=== PATIENT | female | born 1975 | race Caucasian/White ===

== ENCOUNTER 2018-09-20 23:07 | Emergency (ER) | payer OTHER ==
[~2018-09-20] VITALS: Ht 157.5 cm; Wt 95.3 kg
[~2018-09-20 23:07] MED LIST: BCP; CLONIDINE; DULO30CA PO; FENTANYL; IBP800T PO; LRT10T PO; MSL400TEC PO; MTF500T PO; TRM50T PO; ZLP10T PO; [UNRECOGNIZED DRUG - OTHER]; [UNRECOGNIZED DRUG - OTHER]
--- OUTSIDE RECORDS SUMMARY | 2018-09-20 23:14 | XMS REPORT | Continuity of Care Document ---
Author Organization Unknown Address Unknown Allergies Active Description Code Type Severity Reaction Onset Reported/Identified Relationship to Patient Clinical Status Yes amoxicillin trihydrate [id number] Drug Allergy Unknown N/A 05/17/2012 Yes potassium clavulanate [id number] Drug Allergy Unknown N/A 05/17/2012 Medications There is no data. Problems Date Dx Coded Attending Type Code Diagnosis Diagnosed By 07/24/2013 SERA WATTS DO Ot 368.8 VISUAL DISTURBANCES NEC 07/24/2013 SERA WATTS DO Ot 780.52 INSOMNIA, UNSPECIFIED 07/24/2013 SERA WATTS DO Ot 780.79 OTH MALAISE FATIGUE Procedures There is no data. Results There is no data. Encounters ACCT No. Visit Date/Time Discharge Status Pt. Type Provider Facility Loc./Unit Complaint [id number] 07/24/2013 18:41:00 07/24/2013 21:30:00 DIS Emergency SERA WATTS DO [facility] ER R SIDE VISION BLURRED [id number] 09/20/2018 23:10:00 ACT Emergency JEAN CARLOS STERN MD [facility] ER FS ABDOMINAL PAIN/NAUSEA
[2018-09-20 23:47] LABS: BILIRUBIN,URINE NEGATIVE (NEGATIVE); CLARITY,URINE SLT CLOUDY; COLOR,URINE YELLOW; GLUCOSE, URINE (UA) NEGATIVE (NEGATIVE); KETONES,URINE NEGATIVE (NEGATIVE); LEUKOCYTE ESTERASE ,URINE NEGATIVE (NEGATIVE); NITRITE,URINE NEGATIVE (NEGATIVE); PROTEIN,URINE NEGATIVE (NEGATIVE); UROBILINOGEN,URINE 0.2 MG/DL (NORMAL); WBC,URINE 0-2 /HPF
[2018-09-20 23:48] LABS: BACTERIA,URINE RACE /HPF
[2018-09-20] MEDS ORDERED: DICYCLOMINE 10 MG/ML (BENTYL) 2 ML AMP IM STA (23:56)
[2018-09-21] MEDS ORDERED: ONDANSETRON 4 MG/2 ML (SDV) Z0FRAN IVP ONE
[2018-09-21] MEDS ORDERED: KETOROLAC 30 MG/ML VIAL IVP ONE
--- NOTE | 2018-09-21 00:20 | ED Abdominal Pain ---
General Chief Complaint: Abdominal/GI Problems Stated Complaint: ABDOMINAL PAIN/NAUSEA Nursing Triage Note: pt states diffuse abd pain started 5 hrs ago, pt with bowel problems, states bowel movements are not regular, states urination is not regular either. 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 She states it is a cramping sharp pain and is associated with nausea. When the pain comes on it is severe in nature and lasts for several minutes. She has been under extra stress recently with visiting her mother in the hospital. Tonight she was going to try and go back to work but she had this pain come on with n/v. She does have a hx of Sphincter of Oddi dysfunction, Recurrent Pancreatitis, Chronic Constipation, multiple abdominal surgeries including hysterectomy, appendectomy and cholecystectomy, but states that the pain tonight feels different than any of her pains she has had previously. She had tried taking an ambien to sleep and see if she could sleep through the pain but it kept getting worse so she came to the ED tonight. She had taken a Zofran prior to going to bed as well. Timing/Duration: 4-6 Hours Severity/Quality: Severe Location: RUQ, Epigastric Radiation: RUQ, Epigastric Activities at Onset: Rest Modifying Factors: Worsens With Palpation Associated Symptoms: No Chest Pain, No Diaphoresis, No Fever/Chills, No Fatigue , No Headache, No Heartburn; Nausea/Vomiting; No Rash, No Shortness of Air, No Swelling/Mass in Abdomen, No Syncope, No Weakness nothing makes the pain any better but the pain is worse with palpation. Allergies and Home Medications Allergies Coded Allergies: amoxicillin trihydrate (Verified Allergy, 05/17/12) potassium clavulanate (Verified Allergy, 05/17/12) Home Medications Loratadine 10 Mg Tab, 10 MG PO DAILY, (Reported) Mesalamine 400 Mg Tab, 1 TAB PO DAILY, (Reported) Metformin Hcl 500 Mg Tablet, 1 EACH PO BID WITH MEALS, (Reported) Zolpidem Tartrate 10 Mg Tab, 10 MG PO HS, (Reported) Patient Home Medication List Home Medication List Reviewed: Yes Review of Systems Review of Systems Constitutional: No chills, No fever EENTM: No Symptoms Reported Respiratory: No Symptoms Reported Cardiovascular: No Symptoms Reported Gastrointestinal: See HPI, Constipated (chronic with last good BM about 3-4 days ago and only small amounts of stool since then) Genitourinary: Denies Burning, Denies Discharge, Denies Drainage, Denies Frequency, Denies Flank Pain, Denies Hematuria Musculoskeletal: no symptoms reported Skin: no symptoms reported; No rash Psychiatric/Neurological: Anxiety Past [id number]-Ziinsf-Sqdebu Hx Past Med/Social Hx: Reviewed Nursing Past Med/Soc Hx Patient Social History Alcohol Use: Denies Use Recreational Drug Use: No Smoking Status: Never a Smoker 2nd Hand Smoke Exposure: No Recent Foreign Travel: No Contact w/Someone Who Travel: No Recent Infectious Disease Expo: No Recent Hopitalizations: No Physical Abuse: No Sexual Abuse: No Mistreated: No Fear: No Immunizations Up To Date Date of Influenza Vaccine: Apr 14, 2013 Seasonal Allergies Seasonal Allergies: No Past Medical History Surgeries: Yes Abdominal, Adenoidectomy, Appendectomy, Gallbladder, Hysterectomy, Tonsillectomy Respiratory: No Cardiac: Yes Hypertension Neurological: No Reproductive Disorders: No Sexually Transmitted Disease: No Genitourinary: No Gastrointestinal: Yes Colitis, Irritable Bowel Musculoskeletal: No Endocrine: No HEENT: No Cancer: No Psychosocial: Yes Anxiety Integumentary: Yes Eczema Blood Disorders: No Physical Exam Vital Signs Vital Signs - First Documented 09/20/18 23:41 Temp 98.8 Pulse 102 Resp 15 B/P (MAP) 130/90 (103) Pulse Ox 97 O2 Delivery Room Air Capillary Refill : Less Than 3 Seconds Height/Weight/BMI Height: 5'2.00" Weight: 210lbs. oz. 95.934709ax; BMI Method:Stated General Appearance: WD/WN, mild distress HEENT: PERRL/EOMI, pharynx normal Neck: non-tender, supple Respiratory: chest non-tender, lungs clear, normal breath sounds, no respiratory distress, no accessory muscle use Cardiovascular: normal peripheral pulses, regular rate, rhythm Gastrointestinal: soft, no pulsatile mass, abnormal bowel sounds (hypoactive bowel sounds), guarding; No rebound; tenderness (epigastric and RUQ) Rectal: deferred Extremities: normal range of motion, non-tender Neurologic/Psychiatric: alert, oriented x 3 Skin: normal color, warm/dry Images 1 - tender to palpation in epigastric and RUQ. No rebound tenderness or pulsatile mass. Progress/Results/Core Measures Results/Orders Lab Results Laboratory Tests Test 09/20/18 00:30 09/20/18 23:34 Range/Units White Blood Count 9.4 4.3-11.0 10^3/uL Red Blood Count 4.97 4.35-5.85 10^6/uL Hemoglobin 15.4 11.5-16.0 G/DL Hematocrit 45 35-52 % Mean Corpuscular Volume 91 80-99 FL Mean Corpuscular Hemoglobin 31 25-34 PG Mean Corpuscular Hemoglobin Concent 34 32-36 G/DL Red Cell Distribution Width 12.8 10.0-14.5 % Platelet Count 314 130-400 10^3/uL Mean Platelet Volume 9.3 7.4-10.4 FL Neutrophils (%) (Auto) 60 42-75 % Lymphocytes (%) (Auto) 28 12-44 % Monocytes (%) (Auto) 7 0-12 % Eosinophils (%) (Auto) 4 0-10 % Basophils (%) (Auto) 0 0-10 % Neutrophils # (Auto) 5.6 1.8-7.8 X 10^3 Lymphocytes # (Auto) 2.7 1.0-4.0 X 10^3 Monocytes # (Auto) 0.7 0.0-1.0 X 10^3 Eosinophils # (Auto) 0.4 H 0.0-0.3 10^3/uL Basophils # (Auto) 0.0 0.0-0.1 10^3/uL Sodium Level 139 135-145 MMOL/L Potassium Level 4.3 3.6-5.0 MMOL/L Chloride Level 98 98-107 MMOL/L Carbon Dioxide Level 26 21-32 MMOL/L Anion Gap 15 H 5-14 MMOL/L Blood Urea Nitrogen 11 7-18 MG/DL Creatinine 0.59 L 0.60-1.30 MG/DL Estimat Glomerular Filtration Rate > 60 BUN/Creatinine Ratio 19 Glucose Level 117 H 70-105 MG/DL Calcium Level 8.6 8.5-10.1 MG/DL Corrected Calcium 8.6 8.5-10.1 MG/DL Total Bilirubin 0.3 0.1-1.0 MG/DL Aspartate Amino Transf (AST/SGOT) 14 5-34 U/L Alanine Aminotransferase (ALT/SGPT) 10 0-55 U/L Alkaline Phosphatase 77 40-136 U/L Total Protein 7.4 6.4-8.2 GM/DL Albumin 4.0 3.2-4.5 GM/DL Lipase 16 8-78 U/L Urine Color YELLOW Urine Clarity SLT CLOUDY Urine pH 6.0 5-9 Urine Specific [place] 1.025 H 1.016-1.022 Urine Protein NEGATIVE NEGATIVE Urine Glucose (UA) NEGATIVE NEGATIVE Urine Ketones NEGATIVE NEGATIVE Urine Nitrite NEGATIVE NEGATIVE Urine Bilirubin NEGATIVE NEGATIVE Urine Urobilinogen 0.2 NORMAL MG/DL Urine Leukocyte Esterase NEGATIVE NEGATIVE Urine RBC (Auto) 2+ H NEGATIVE Urine RBC 2-5 H /HPF Urine WBC 0-2 /HPF Urine Squamous Epithelial Cells 2-5 /HPF Urine Crystals NONE /LPF Urine Bacteria RACE /HPF Urine Casts NONE /LPF Urine Mucus MODERATE H /LPF Urine Culture Indicated NO My Orders Orders - JEAN CARLOS STERN MD Ua Culture If Indicated (09/20/18 23:34) Comprehensive Metabolic Panel (09/20/18 23:56) Lipase (09/20/18 23:56) Ed Iv/Invasive Line Start (09/20/18 23:56) Cbc With Automated Diff (09/20/18 23:56) Ondansetron Injection (Zofran Injectio (09/21/18 00:00) Dicyclomine Injection (Bentyl Injection) (09/20/18 23:56) Ct Abd/Pelvis Wo(Kidney Stone) (09/20/18 23:56) Ketorolac Injection (Toradol Injection) (09/21/18 00:00) Rx-Dicyclomine Capsule (Rx-Bentyl Capsul (09/21/18 01:30) Medications Given in ED Current Medications Medications Dose Ordered Sig/Shakeel Route Start Time Stop Time Status Last Admin Dose Admin Ketorolac Tromethamine 30 mg ONCE ONCE IVP 09/21/18 00:00 09/21/18 00:05 DC 09/21/18 00:28 30 MG Ondansetron HCl 4 mg ONCE ONCE IVP 09/21/18 00:00 09/21/18 00:05 DC 09/21/18 00:28 4 MG Vital Signs/I&O 09/20/18 23:41 Temp 98.8 Pulse 102 Resp 15 B/P (MAP) 130/90 (103) Pulse Ox 97 O2 Delivery Room Air Blood Pressure Mean: 103 Progress Progress Note #1: Time: 00:01 Progress Note obtain labs and check CT scan of abdomen and pelvis. Since she reports a family history of kidney stones in her father and does have some blood in her urine will check a renal stone protocol CT. This would also be able to check for bowel obstruction since she has hypoactive BS and multiple surgeries in the past which puts her at increased risk of small bowel obstruction. Try Zofran for nausea, Toradol for pain and Bentyl for spasm and cramping pain. Progress Note #2: Time: 01:10 Progress Note Labs came back showing normal CBC without acute abnormality. Chemistry shows normal Lipase and no acute significant abnormality on LFTs or renal function. Her electrolytes all look ok as well. CT scan read by [facility] as no obstruction or blockage and appearing more consistent with enteritis. Will review results with pt and see how she has responded to treatment so far. Progress Note #3: Time: 01:25 Progress Note Pt reports symptoms improved with treatment. Reviewed results and counseled on treatment for enteritis. Will have her continue to push fluids at home and use Zofran. Add in Bentyl and see if that continues to help. counseled on follow up and return precautions. Diagnostic Imaging Diagonstic Imaging: CT Plain Films/CT/US/NM/MRI: abdomen, pelvis Comments Impression: 1. Findings most likely represent enteritis involving the small bowel. 2. No bowel obstruction or free air. 3. No other acute findings. per Dr. Saturnino Mendoza MD read at [id number] and faxed at [phone]. Reviewed: Reviewed Night [facility] Study Departure Impression Primary Impression: Acute gastroenteritis Additional Impression: Epigastric abdominal pain Disposition: HOME, SELF-CARE Condition: Stable Departure-Patient Inst. Decision time for Depature: 01:35 Referrals: RUTHANN OBANDO DO (PCP/Family) Primary Care Physician Patient Instructions: Viral Gastroenteritis, Adult (DC) Add. Discharge Instructions: Continue on your Zofran at home for nausea and keep trying to push fluids and rest. Use the Dicyclomine (Bentyl) for abdominal pain/cramping. The tests tonight were showing signs of Gastroenteritis or a stomach virus that is causing stomach and small intestine irritation. Check back with clinic if not improving by Saturday or Saturday or return if worsening Consider taking a Probiotic to help your gut replace the good bacteria and balance itself back out. Activia or a Yogurt with active cultures would also help to replace some of the good bacteria. All discharge instructions reviewed with patient and/or family. Voiced understanding. Scripts Dicyclomine HCl (Dicyclomine HCl) 20 Mg Tablet 20 MG PO Q6H PRN for ABDOMINAL PAIN for 7 Days, #30 TAB 0 Refills Prov: JEAN CARLOS STERN MD 09/21/18 Work/School Note: Work Release Form Date Seen in the Emergency Department: Sep 20, 2018 Return to Work: Sep 24, 2018 Restrictions: No Restrictions JEAN CARLOS STERN MD Sep 21, 2018 00:20
[2018-09-21 00:35] LABS: HEMATOCRIT 45 % (35-52); HEMOGLOBIN 15.4 G/DL (11.5-16.0); MEAN CORPUSCULAR HEMOGLOBIN 31 PG (25-34); MEAN CORPUSCULAR VOLUME 91 FL (80-99); WHITE BLOOD COUNT 9.4 10^3/uL (4.3-11.0)
[2018-09-21 00:36] LABS: BASOPHILS % (AUTO) 0 % (0-10); EOSINOPHILS # (AUTO) 0.4 10^3/uL (0.0-0.3); EOSINOPHILS % (AUTO) 4 % (0-10); LYMPHOCYTES # (AUTO) 2.7 X 10^3 (1.0-4.0); LYMPHOCYTES % (AUTO) 28 % (12-44); MEAN CORPUSCULAR HGB CONC 34 G/DL (32-36); MEAN PLATELET VOLUME 9.3 FL (7.4-10.4); MONOCYTES # (AUTO) 0.7 X 10^3 (0.0-1.0); MONOCYTES % (AUTO) 7 % (0-12); NEUTROPHILS # (AUTO) 5.6 X 10^3 (1.8-7.8); NEUTROPHILS % (AUTO) 60 % (42-75); PLATELET COUNT 314 10^3/uL (130-400); RED CELL DISTRIBUTION WIDTH 12.8 % (10.0-14.5)
[2018-09-21 00:55] LABS: POTASSIUM 4.3 MMOL/L (3.6-5.0); SODIUM 139 MMOL/L (135-145)
[2018-09-21 00:56] LABS: ALANINE AMINOTRANSFERASE 10 U/L (0-55); ALKALINE PHOSPHATASE 77 U/L (40-136); BILIRUBIN,TOTAL 0.3 MG/DL (0.1-1.0); BUN/CREATININE RATIO 19; CALCIUM 8.6 MG/DL (8.5-10.1); CARBON DIOXIDE 26 MMOL/L (21-32); CHLORIDE 98 MMOL/L (98-107); CREATININE SERUM 0.59 MG/DL (0.60-1.30); GFR ESTIMATED > 60; GLUCOSE 117 MG/DL (70-105); LIPASE 16 U/L (8-78); TOTAL PROTEIN 7.4 GM/DL (6.4-8.2)
[2018-09-21] MEDS ORDERED: RX-DICYCLOMINE 10 MG (BENTYL) CAP PPK#4 PO STA (01:30)
[2018-09-21] MEDS ORDERED: DICY20TA10 PO (01:36)
[2018-09-21 01:48] VITALS: BP 121/90
--- NOTE | 2018-09-21 06:08 | Diagnostic Imaging Report ---
Clinical indication: Patient with diffuse abdominal pain. Exam: CT exam of the abdomen and pelvis is performed without IV or oral contrast using stone protocol. Coronal and sagittal reformatted images are created. Comparisons: None. Findings: Visualized lung bases: Unremarkable. Liver: There is small amount of pneumobilia seen possibly from cholecystectomy changes. Otherwise liver is unremarkable. Gallbladder: Gallbladder surgically resected. Pancreas: Unremarkable as visualized. Spleen: Unremarkable as visualized. Adrenal glands: Unremarkable. Kidneys/ ureters: Unremarkable as visualized. Aorta: Unremarkable as visualized. Intraabdominal/ retroperitoneal contents: There is no intra-abdominal free air. Fluid within the mesentery, lower abdomen and pelvis region. Intestines: There are mildly distended fluid-filled loops of small bowel overlying the mid lower abdomen with few air-fluid levels seen. There is mild fat stranding and mild fluid in the adjacent mesentery. There is no measurable mass seen. Remainder of the intestines show no other significant abnormality. There is a diverticula involving the splenic flexure of the colon. There is no CT evidence of diverticulitis. Appendix: Surgically absent. Bladder: Unremarkable as visualized. Pelvic organs: The uterus is surgically resected. The adnexal regions are not well delineated and may also be surgically resected. Extra abdominal/ pelvis regions: Unremarkable. Abdominal wall: Unremarkable. Bones: Unremarkable. Impression: 1: There is multiple fluid distended loops of small bowel overlying the mid and lower abdomen with air-fluid levels, and bowel wall thickening. There is also adjacent fat stranding and mesenteric fluid seen. These findings may be related to enteritis. There is no intra-abdominal free air. 2: The remainder of this exam shows no other significant abnormality. I agree with [facility] report. Dictated by: Dictated on workstation # [id number]
== END 2018-09-21 01:47 | disposition home or self-care (01) ==
LOC: EDUNIT# 23:07 → ER FS 23:10
DX: K52.9 Noninfective gastroenteritis and colitis, unspecified (principal); I10 Essential (primary) hypertension; K58.9 Irritable bowel syndrome, unspecified; F41.9 Anxiety disorder, unspecified; Z87.19 Personal history of other diseases of the digestive system; Z90.710 Acquired absence of both cervix and uterus; Z90.49 Acquired absence of other specified parts of digestive tract; Z88.0 Allergy status to penicillin; Z88.8 Allergy status to other drugs, medicaments and biological substances; Z79.84 Long term (current) use of oral hypoglycemic drugs; Z90.89 Acquired absence of other organs
CPT/HCPCS: 36415; 74176; 80053; 81000; 83690; 85025; 96374; 96375

== ENCOUNTER 2022-11-18 23:19 | Emergency (ER) | payer OTHER ==
[~2022-11-18] VITALS: Ht 157.5 cm; Wt 84.6 kg
[~2022-11-18 23:19] MED LIST changes: +DICY20TA PO
[2022-11-18] MEDS ORDERED: NS IV 1000 ML 1,000 ML IV STA (23:34)
[2022-11-18] MEDS ORDERED: ONDANSETRON 4 MG/2 ML (SDV) Z0FRAN IVP STA (23:34)
[2022-11-18] MEDS ORDERED: PANTOPRAZOLE 40 MG (PROTONIX) VIAL IV STA (23:34)
[2022-11-18] MEDS ORDERED: KETOROLAC 15 MG/ML VIAL IVP STA (23:34)
--- NOTE | 2022-11-18 23:38 | ED GI ---
General Chief Complaint: Abdominal/GI Problems Stated Complaint: ABD PAIN|CRAMPING Source of Information: Patient History of Present Illness Date Seen by Provider: Nov 18, 2022 Time Seen by Provider: 23:26 Initial Comments 47-year-old female presenting with complaints of a week of off-and-on abdominal pain with nausea but no vomiting. 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 She sees GI specialist Dr. Esquivel intermittently for her sphincter of Oddi dysfunction and pancreatitis but has not seen him recently. She has had stool that varied from diarrhea to constipation. She had woken up with pain earlier today and had gone to work tonight however she felt like the pain was so bad that she was not going to be able to complete work. She left work to come here to the emergency department. She rates her pain at a 7 out of 10 and it is worse in the upper aspect of her abdomen. She feels like it is going into her back. She had felt like she was may be running a fever earlier but did not check her temperature. She also thought that that might be related to seasonal allergies since she started taking an allergy pill. Timing/Duration: 1 Week Severity/Quality: Severe, Cramping, Sharp Location: Generalized Abdomen (But worse in the upper abdomen and epigastric area) Radiation: Back Activities at Onset: None Modifying Factors: Worsens With Eating Associated Symptoms: No Chest Pain, No Diaphoresis, No Fever/Chills, No Headache; Heartburn, Nausea/Vomiting (Nausea but no vomiting); No Shortness of Air, No Swelling/Mass in Abdomen, No Syncope, No Weakness Allergies and Home Medications Allergies Coded Allergies: amoxicillin trihydrate (Verified Allergy, 05/17/12) potassium clavulanate (Verified Allergy, 05/17/12) Patient Home Medication List Home Medication List Reviewed: Yes Dicyclomine HCl (Dicyclomine HCl) 20 Mg Tablet, 20 MG PO Q6H PRN for ABDOMINAL PAIN Prescribed by: JEAN CARLOS STERN on 09/21/18 0136 Dicyclomine HCl (Dicyclomine HCl) 10 Mg Capsule, 10 MG PO Q6H PRN for ABDOMINAL PAIN Prescribed by: JEAN CARLOS STERN on 11/19/22 0257 Loratadine (Claritin) 10 Mg Tab, 10 MG PO DAILY, (Reported) Entered as Reported by: UMA OROZCO on 05/17/12 131 Mesalamine (Asacol) 400 Mg Tab, 1 TAB PO DAILY, (Reported) Entered as Reported by: UMA OORZCO on 05/17/12 130 Metformin Hcl (Metformin 500 Mg) 500 Mg Tablet, 1 EACH PO BID WITH MEALS, (Reported) Entered as Reported by: UMA OROZCO on 05/17/12 130 Zolpidem Tartrate (Ambien 10 Mg) 10 Mg Tab, 10 MG PO HS, (Reported) Entered as Reported by: SHRADDHA FUNES on 07/24/131905 [Bcp] , (Reported) Entered as Reported by: UMA OROZCO on 05/17/12 131 [Cloondine] , (Reported) Entered as Reported by: UMA OROZCO on 05/17/12 130 [Fentanyl] , (Reported) Entered as Reported by: UMA OROZCO on 05/17/12 131 [Propanal] , (Reported) Entered as Reported by: UMA OROZCO on 05/17/12 130 Review of Systems Review of Systems Constitutional: see HPI; No chills; fever (Subjective fever) EENTM: No Symptoms Reported Respiratory: No Symptoms Reported Cardiovascular: No Symptoms Reported Gastrointestinal: See HPI Genitourinary: Denies Flank Pain, Denies Pain, Denies Urgency Musculoskeletal: no symptoms reported Skin: no symptoms reported Psychiatric/Neurological: No Symptoms Reported Past [id number] Hx Patient Social History Tobacco Use?: No Use of E-Cig and/or Vaping dev: No Substance use?: No Alcohol Use?: No Immunizations Up To Date Influenza Vaccine Up-to-Date: Yes; Up-to-Date Seasonal Allergies Seasonal Allergies: No Past Medical History Surgery/Hospitalization HX: Sphincter of Oddi dysfunction, pancreatitis Surgeries: Yes Abdominal, Adenoidectomy, Appendectomy, Gallbladder, Hysterectomy, Tonsillectomy Respiratory: No Cardiac: Yes Hypertension Neurological: No Reproductive Disorders: No Sexually Transmitted Disease: No Genitourinary: No Gastrointestinal: Yes Colitis, Irritable Bowel Musculoskeletal: No Endocrine: No HEENT: No Cancer: No Psychosocial: Yes Anxiety Integumentary: Yes Eczema Blood Disorders: No Physical Exam Vital Signs Vital Signs - First Documented 11/18/22 23:25 Temp 36.8 Pulse 81 Resp 18 B/P (MAP) 131/96 (108) Pulse Ox 97 O2 Delivery Room Air Capillary Refill : Height/Weight/BMI Height: 5'2.00" Weight: 210lbs. oz. 95.940420bf; BMI Method:Stated General Appearance: WD/WN, no apparent distress HEENT: PERRL/EOMI, pharynx normal Neck: non-tender, full range of motion, supple, normal inspection Respiratory: chest non-tender, lungs clear, normal breath sounds, no res piratory distress, no accessory muscle use Cardiovascular: normal peripheral pulses, regular rate, rhythm Gastrointestinal: normal bowel sounds, soft, no pulsatile mass; No distended, No guarding, No rebound; tenderness (Diffuse tenderness but worse in the epigastric and upper half of the abdomen) Rectal: deferred Extremities: normal range of motion, non-tender, normal capillary refill Back: no CVA tenderness Neurologic/Psychiatric: alert, oriented x 3 Skin: normal color, warm/dry Progress/Results/Core Measures Results/Orders Lab Results Laboratory Tests Test 11/18/22 23:32 11/18/22 23:36 Range/Units White Blood Count 8.5 4.3-11.0 10^3/uL Red Blood Count 4.75 3.80-5.11 10^6/uL Hemoglobin 14.6 11.5-16.0 g/dL Hematocrit 43 35-52 % Mean Corpuscular Volume 90 80-99 fL Mean Corpuscular Hemoglobin 31 25-34 pg Mean Corpuscular Hemoglobin Concent 34 32-36 g/dL Red Cell Distribution Width 12.2 10.0-14.5 % Platelet Count 325 130-400 10^3/uL Mean Platelet Volume 10.0 9.0-12.2 fL Immature Granulocyte % (Auto) 0 % Neutrophils (%) (Auto) 42 42-75 % Lymphocytes (%) (Auto) 42 12-44 % Monocytes (%) (Auto) 9 0-12 % Eosinophils (%) (Auto) 7 0-10 % Basophils (%) (Auto) 1 0-10 % Neutrophils # (Auto) 3.6 1.8-7.8 10^3/uL Lymphocytes # (Auto) 3.6 1.0-4.0 10^3/uL Monocytes # (Auto) 0.7 0.0-1.0 10^3/uL Eosinophils # (Auto) 0.6 H 0.0-0.3 10^3/uL Basophils # (Auto) 0.1 0.0-0.1 10^3/uL Immature Granulocyte # (Auto) 0.0 0.0-0.1 10^3/uL Sodium Level 140 135-145 MMOL/L Potassium Level 4.4 3.6-5.0 MMOL/L Chloride Level 103 98-107 MMOL/L Carbon Dioxide Level 26 21-32 MMOL/L Anion Gap 11 5-14 MMOL/L Blood Urea Nitrogen 9 7-18 MG/DL Creatinine 0.64 0.60-1.30 MG/DL Estimat Glomerular Filtration Rate 111 BUN/Creatinine Ratio 14 Glucose Level 108 H 70-105 MG/DL Calcium Level 8.8 8.5-10.1 MG/DL Corrected Calcium 8.9 8.5-10.1 MG/DL Total Bilirubin 0.2 0.1-1.0 MG/DL Aspartate Amino Transf (AST/SGOT) 16 5-34 U/L Alanine Aminotransferase (ALT/SGPT) 13 0-55 U/L Alkaline Phosphatase 113 40-136 U/L Total Protein 7.2 6.4-8.2 GM/DL Albumin 3.9 3.2-4.5 GM/DL Lipase 19 8-78 U/L Urine Color YELLOW Urine Clarity CLEAR Urine pH 6.0 5-9 Urine Specific Widen 1.025 H 1.016-1.022 Urine Protein NEGATIVE NEGATIVE Urine Glucose (UA) NEGATIVE NEGATIVE Urine Ketones NEGATIVE NEGATIVE Urine Nitrite NEGATIVE NEGATIVE Urine Bilirubin NEGATIVE NEGATIVE Urine Urobilinogen 0.2 < = 1.0 MG/DL Urine Leukocyte Esterase NEGATIVE NEGATIVE Urine RBC (Auto) 1+ H NEGATIVE Urine RBC 0-2 /HPF Urine WBC 2-5 /HPF Urine Squamous Epithelial Cells 0-2 /HPF Urine Renal Epithelial Cells RARE /HPF Urine Crystals NONE /LPF Urine Bacteria FEW H /HPF Urine Casts NONE /LPF Urine Mucus LARGE H /LPF Urine Culture Indicated NO My Orders Orders - JEAN CARLOS STERN MD Comprehensive Metabolic Panel (11/18/22 23:34) Lipase (11/18/22 23:34) Ua Culture If Indicated (11/18/22 23:34) Ed Iv/Invasive Line Start (11/18/22 23:34) Cbc With Automated Diff (11/18/22 23:34) Ct Abdomen/Pelvis W (11/18/22 23:34) Ns Iv 1000 Ml (Sodium Chloride 0.9%) (11/18/22 23:34) Ketorolac Injection (Toradol Injection) (11/18/22 23:34) Ondansetron Injection (Zofran Injectio (11/18/22 23:34) Pantoprazole Injection (Protonix Injecti (11/18/22 23:34) Iohexol Injection (Omnipaque 350 Mg/Ml 1 (11/19/22 00:00) Received Contrast (Hold Metformin- Contr (11/19/22 00:00) Sodium Chloride Flush (Catheter Flush Sy (11/19/22 00:00) Ns (Ivpb) (Sodium Chloride 0.9% Ivpb Bag (11/19/22 00:00) Rx-Dicyclomine Capsule (Rx-Bentyl Capsul (11/19/22 02:52) Medications Given in ED Current Medications Medications Dose Ordered Sig/Shakeel Route Start Time Stop Time Status Last Admin Dose Admin Iohexol 80 ml ONCE ONCE IV 11/19/22 00:00 11/19/22 00:03 DC 11/19/22 00:06 80 ML Sodium Chloride 10 ml NEEDED PRN IV 11/19/22 00:00 11/19/22 03:16 DC 11/19/22 00:07 10 ML Sodium Chloride 100 ml ONCE ONCE IV 11/19/22 00:00 11/19/22 00:03 DC 11/19/22 00:07 100 ML Vital Signs/I&O 11/18/22 23:25 Temp 36.8 Pulse 81 Resp 18 B/P (MAP) 131/96 (108) Pulse Ox 97 O2 Delivery Room Air Progress Progress Note #1: Progress Note Potential diagnosis of pancreatitis, gastritis, colitis, diverticulitis, bowel obstruction. Obtain peripheral IV access and send labs for complete blood count, comprehensive metabolic profile, lipase. Urinalysis to look for signs of UTI. CT scan of the abdomen and pelvis with IV contrast to look for acute pathology to account for her pain. Administer normal saline 1 L IV fluid bolus for hydration, ketorolac 15 mg IV for pain, pantoprazole 40 mg IV for possible gastritis, Zofran 4 mg IV for nausea. Keep patient n.p.o. while waiting on testing. Progress Note #2: Time: 00:12 Progress Note Complete blood count shows a normal white blood cell count of 8.5 with hemoglobin of 14.6 and normal platelets of 325. On my personal interpretation and review of the CT scan of the abdomen and pelvis with IV contrast I did not appreciate any acute bowel obstruction, perforation, pancreatitis. She did have some increased stool specially on the descending colon. Progress Note #3: Time: 00:23 Progress Note Urinalysis shows elevated specific gravity of 1.025 consistent with some dehydration. There were few bacteria and 2-5 white blood cells but negative for leukocyte esterase or nitrites. Comprehensive metabolic profile does not show any acute significant abnormality to account for her symptoms. Her lipase was not elevated and LFTs as well as basic electrolytes were also not elevated. On my personal interpretation and review I did not appreciate any acute abnormality on her CT scan of the abdomen pelvis without IV contrast. Progress Note #4: Time: 02:30 Progress Note I reviewed the radiologist report on the CT scan of the abdomen and pelvis with IV contrast and they did not appreciate any acute process to be explaining her complaints of pain. They saw no findings of acute pancreatitis. She had findings for history of prior cholecystectomy with sphincterotomy, appendectomy, hysterectomy. She did have some diverticulosis but no diverticulitis. Counseled patient about the findings. Patient reports that she was feeling better with treatment here in the emergency department. Her pain was significantly less and at times was gone. It was now more intermittent instead of constant. She states that she has taken dicyclomine in the past and it had helped with some of her symptoms. Will send her with a take-home pack of dicyclomine and send a prescription to the pharmacy so that she could try and continue this as needed for pain. Encouraged to check back with her primary care provider as well as she may need to see the GI specialist for her sphincter of Oddi dysfunction. Diagnostic Imaging Diagonstic Imaging: CT Plain Films/CT/US/NM/MRI: abdomen, pelvis Comments CT scan of the abdomen and pelvis with IV contrast Impression: 1. Cholecystectomy with pneumobilia, likely related to sphincterotomy. Common bile duct measures 7 mm and pancreatic duct measures 3.5 mm. No evidence of acute pancreatitis. 2. History of appendectomy and hysterectomy. 3. Minimal diverticulosis. No evidence of acute diverticulitis. Read by radiologist Dr. Fox Villaneuva MD at [phone] and faxed at [phone] Reviewed: Reviewed [place] Study, Reviewed by Me Departure Impression Primary Impression: Epigastric abdominal pain Additional Impressions: Diffuse abdominal pain Sphincter of Oddi dysfunction Disposition: HOME, SELF-CARE Condition: Stable Departure-Patient Inst. Decision time for Depature: 02:56 Referrals: RUTHANN OBANDO DO (PCP/Family) Primary Care Physician Patient Instructions: Abdominal Pain, Adult ED, Gastritis ED Add. Discharge Instructions: Try taking the dicyclomine for abdominal cramping and pain. Try to stay well-hydrated and drink plenty of fluids. Consider taking a probiotic as directed on the bottle [id number] to help with digestion and regulating your bowel movements. Follow-up with your primary care and you may also need to recheck with your GI specialist. All discharge instructions reviewed with patient and/or family. Voiced understanding. Scripts Dicyclomine HCl (Dicyclomine HCl) 10 Mg Capsule 10 MG PO Q6H PRN for ABDOMINAL PAIN for 7 Days, #28 CAP 0 Refills Prov: JEAN CARLOS STERN MD 11/19/22 Work/School Note: Work Release Form Date Seen in the Emergency Department: Nov 19, 2022 Return to Work: Nov 21, 2022 Restrictions: Return-No Vomiting(24hrs) JEAN CARLOS STERN MD Nov 18, 2022 23:38
[2022-11-18 23:48] LABS: BASOPHILS # (AUTO) 0.1 10^3/uL (0.0-0.1); BASOPHILS % (AUTO) 1 % (0-10); EOSINOPHILS # (AUTO) 0.6 10^3/uL (0.0-0.3); EOSINOPHILS % (AUTO) 7 % (0-10); HEMATOCRIT 43 % (35-52); HEMOGLOBIN 14.6 g/dL (11.5-16.0); LYMPHOCYTES # (AUTO) 3.6 10^3/uL (1.0-4.0); LYMPHOCYTES % (AUTO) 42 % (12-44); MEAN CORPUSCULAR HEMOGLOBIN 31 pg (25-34); MEAN CORPUSCULAR HGB CONC 34 g/dL (32-36); MEAN CORPUSCULAR VOLUME 90 fL (80-99); MONOCYTES # (AUTO) 0.7 10^3/uL (0.0-1.0); MONOCYTES % (AUTO) 9 % (0-12); NEUTROPHILS # (AUTO) 3.6 10^3/uL (1.8-7.8); NEUTROPHILS % (AUTO) 42 % (42-75); PLATELET COUNT 325 10^3/uL (130-400); WHITE BLOOD COUNT 8.5 10^3/uL (4.3-11.0)
[2022-11-19] MEDS ORDERED: CATHETER FLUSH 10 ML SYR IV PRN
[2022-11-19] MEDS ORDERED: IOHEXOL 350 MG/ML 100 ML (OMNIPAQUE 350) VIAL IV ONE
[2022-11-19] MEDS ORDERED: NS 100 ML (IVPB) BAG IV ONE
[2022-11-19] MEDS ORDERED: HOLD METFORMIN - RECEIVED CONTRAST 20 ML VIAL IV SCH
[2022-11-19 00:03] LABS: BILIRUBIN,URINE NEGATIVE (NEGATIVE); CLARITY,URINE CLEAR; COLOR,URINE YELLOW; GLUCOSE, URINE (UA) NEGATIVE (NEGATIVE); KETONES,URINE NEGATIVE (NEGATIVE); LEUKOCYTE ESTERASE ,URINE NEGATIVE (NEGATIVE); NITRITE,URINE NEGATIVE (NEGATIVE); PROTEIN,URINE NEGATIVE (NEGATIVE)
[2022-11-19 00:21] LABS: BACTERIA,URINE FEW /HPF; RBC,URINE 0-2 /HPF; RENAL EPITHELIAL CELLS,URINE RARE /HPF; SQUAMOUS EPITHELIAL CELL,UR 0-2 /HPF
[2022-11-19 00:28] LABS: ALBUMIN 3.9 GM/DL (3.2-4.5); BILIRUBIN,TOTAL 0.2 MG/DL (0.1-1.0); CALCIUM 8.8 MG/DL (8.5-10.1); CREATININE SERUM 0.64 MG/DL (0.60-1.30); POTASSIUM 4.4 MMOL/L (3.6-5.0); TOTAL PROTEIN 7.2 GM/DL (6.4-8.2)
[2022-11-19] MEDS ORDERED: RX-DICYCLOMINE 10 MG (BENTYL) CAP PPK#4 PO STA (02:52)
[2022-11-19] MEDS ORDERED: DICY10CA12 PO (02:57)
[2022-11-19 03:14] VITALS: BP 121/76
--- NOTE | 2022-11-19 07:36 | Diagnostic Imaging Report ---
PROCEDURE: CT abdomen and pelvis with contrast. TECHNIQUE: Multiple contiguous axial images were obtained through the abdomen and pelvis after administration of intravenous contrast. Auto Exposure Controls were utilized during the CT exam to meet ALARA standards for radiation dose reduction. All CT scans use one or more of the following dose optimizing techniques: automated exposure control, MA and/or KvP adjustment based on patient size and exam type or iterative reconstruction. INDICATION: Epigastric pain, abdominal pain, ,cramping. Pancreatitis. COMPARISON: 11/18/2022 FINDINGS: The gallbladder is surgically absent. There is mild post-interventional pneumobilia presumed from previous sphincterotomy. There is air within the extrahepatic bile duct. The common duct 7 mm within normal limits of caliber postcholecystectomy. No radiodense biliary ductal calculus. The pancreas and peripancreatic fat unremarkable. The pancreatic duct grossly unremarkable. No features of pancreatitis. No perihepatic fluid collection. No abscess, hematoma or biloma. Spleen and adrenals negative. The unobstructed kidneys normal. The appendix absent. There is no diverticulitis. The uterus absent or atrophic. There is no adnexal lesion. The urinary bladder decompressed. No pneumatosis. No free gas, IMPRESSION: Previous cholecystectomy and likely sphincterotomy with no acute pathology in the abdomen or pelvis. Agree with the preliminary interpretation. Dictated by: Dictated on workstation # [id number]
== END 2022-11-19 03:14 | disposition home or self-care (01) ==
LOC: EDUNIT# 23:19 → ER FS 23:21
DX: K83.4 Spasm of sphincter of Oddi (principal); K57.90 Diverticulosis of intestine, part unspecified, without perforation or abscess without bleeding; Z90.49 Acquired absence of other specified parts of digestive tract; Z28.310 Unvaccinated for COVID-19
CPT/HCPCS: 36415; 74177; 80053; 81000; 83690; 85025